=== PATIENT | male | born 1990 | race Native Hawaiian/Other Pacific Islander ===

== ENCOUNTER 2021-07-29 06:22 | Emergency (ER) | payer OTHER ==
[~2021-07-29] VITALS: Ht 154.9 cm; Wt 66.2 kg
[2021-07-29 06:35] VITALS: TEMP 97.7
[2021-07-29 08:17] VITALS: BP 118/73
== END 2021-07-29 08:25 | disposition home or self-care (01) ==
LOC: ED 06:22
DX: B34.9 Viral infection, unspecified (principal); J98.8 Other specified respiratory disorders; F17.210 Nicotine dependence, cigarettes, uncomplicated
CPT/HCPCS: 87651; 96372; 99283; J0696; J1100

== ENCOUNTER 2022-04-15 13:06 | Emergency (ER) | payer OTHER ==
[~2022-04-15] VITALS: Ht 154.9 cm; Wt 66.2 kg
[2022-04-15 13:10] VITALS: TEMP 98.4
[2022-04-15 13:45] VITALS: BP 140/80
== END 2022-04-15 13:45 | disposition home or self-care (01) ==
LOC: ED 13:06
DX: M54.59 Other low back pain (principal); S39.012A Strain of muscle, fascia and tendon of lower back, initial encounter; X58.XXXA Exposure to other specified factors, initial encounter; Y92.89 Other specified places as the place of occurrence of the external cause
CPT/HCPCS: 96372; 99282; J1885